=== PATIENT | male | born 1970 | race African-American/Black ===

== ENCOUNTER 2020-02-21 17:49 | Emergency (ER) | payer OTHER ==
[~2020-02-21] VITALS: Ht 172.7 cm; Wt 76.2 kg
[2020-02-21 18:20] LABS: ABSOLUTE NEUTROPHILS 8.1 thou/uL (1.4-8.2); BASOPHILS 0.3 % (0.0-2.0); EOSINOPHILS 0.1 % (0.0-3.0); HEMATOCRIT 36.5 % (42.0-52.0); HEMOGLOBIN 12.3 gm/dL (14.0-18.0); LYMPHOCYTES 6.9 % (24.0-44.0); MCH 31.8 pg (26.0-34.0); MCHC 33.7 g/dL (28.0-37.0); MCV 94.4 fL (80.0-100.0); PLATELET COUNT 138 thou/uL (150-400); POLYS 86.7 % (36.0-66.0); RBC 3.87 mil/uL (4.50-6.00); RDW 13.6 % (10.5-14.5); WBC 9.4 thou/uL (4.0-11.0)
[2020-02-21 18:28] LABS: ANION GAP 14 mmol/L (7-16); BUN 13 mg/dL (7-18); CALCIUM 8.7 mg/dL (8.5-10.1); CHLORIDE 98 mmol/L (98-107); CO2 22 mmol/L (21-32); GLUCOSE 99 mg/dL (74-106); POTASSIUM 4.5 mmol/L (3.5-5.1); SODIUM 134 mmol/L (136-145)
[2020-02-21 18:37] LABS: ALBUMIN 3.9 g/dL (3.4-5.0); SGOT 71 U/L (15-37); SGPT 55 U/L (30-65); TOTAL BILIRUBIN 0.2 mg/dL (<0.1-1.0); TOTAL PROTEIN 8.6 g/dL (6.4-8.2); TROPONIN-I <0.06 ng/mL (<0.06)
[2020-02-21 18:55] LABS: AMP/METHAMP Negative (Negative); BARBITURATES Negative (Negative); BENZODIAZEPINES Negative (Negative); COCAINE Negative (Negative); METHADONE Negative (Negative); OPIATES Negative (Negative); PCP POSITIVE (Negative)
[2020-02-21 19:59] VITALS: BP 111/70
--- NOTE | 2020-02-22 08:40 | EKG ---
[facility] [place] [address] ELECTROCARDIOGRAM REPORT Name: SHERYL HUBBARD [id number] Admission: 02/21/20 Attend Phys: Discharge: 02/21/20 Date of : 72 Report #: [id number] THIS REPORT FOR: cc: ELAINE - [facility] family physician/PCP ELAINE - [place] family physician/PCP Tien Hernandez MD ~ THIS REPORT FOR: //name// [facility] ED Test Date: 2020-02-21 Test Time: 18:12:57 Pat Name: SHERYL HUBBARD Department: Room: Gender: Chemist Intern: : 1970 Requested By: Ady Carrillo Order Number: [id number] MD: Tien Hernandez Measurements Intervals [place] Rate: 92 P: 60 [place]: 127 QRS: 64 QRSD: 81 T: 34 QT: 334 QTc: 414 Interpretive Statements Sinus rhythm Consider left ventricular hypertrophy ST elev, probable normal early repol pattern No previous ECG available for comparison Electronically Signed On 02-22-2020 8:39:02 CDT by Tien Hernandez [email or web address] <ELECTRONICALLY SIGNED> By: Tien Hernandez MD 02/22/20 0839 11 11 Tien Hernandez MD /YOMI
== END 2020-02-21 20:04 ==
LOC: ER 17:49
PROVIDERS: Emergency Medicine
DX: S70.01XA Contusion of right hip, initial encounter (principal); F10.129 Alcohol abuse with intoxication, unspecified; R11.10 Vomiting, unspecified; J44.9 Chronic obstructive pulmonary disease, unspecified; I10 Essential (primary) hypertension; W22.8XXA Striking against or struck by other objects, initial encounter; Y93.89 Activity, other specified; Y92.89 Other specified places as the place of occurrence of the external cause; Y99.8 Other external cause status; Y90.9 Presence of alcohol in blood, level not specified